=== PATIENT | male | born 1980 | race Hispanic/Latino ===

== ENCOUNTER 2021-06-30 05:41 | Emergency (ER) | payer BC ==
[2021-06-30 08:22] LABS: Protime INR 0.97
[2021-06-30 08:23] LABS: Absolute Lymphocytes (CBC) 2.3 K/uL (0.7-4.9); Basophils % 0.7 % (0-1.3); Hematocrit 41.3 % (39.6-49.0); Lymphocytes % 29.7 % (15.3-44.8); MPV 8.7 fL (7.6-11.3); RBC Red Blood Cell Count 4.44 M/uL (4.33-5.43)
[2021-06-30 08:52] LABS: ALT/SGPT 40 U/L (12-78); AST/SGOT 11 U/L (15-37); Albumin 3.7 g/dL (3.4-5.0); Alkaline Phosphatase 80 U/L (45-117); BUN Blood Urea Nitrogen 14 mg/dL (7-18); Bicarbonate 27 mmol/L (21-32); Bilirubin Direct 0.1 mg/dL (0-0.2); Bilirubin Total 0.4 mg/dL (0.2-1.0); Glucose Level 108 mg/dL (74-106); Lipase 85 U/L (73-393); Magnesium 2.2 mg/dL (1.8-2.4); NT PRO-BNP 7 pg/mL (<125); Potassium 3.8 mmol/L (3.5-5.1); Protein, Total 7.2 g/dL (6.4-8.2); Sodium Level 140 mmol/L (136-145); Troponin (Emerg Dept Use Only) < 0.02 ng/mL (0.0-0.045)
--- NOTE | 2021-06-30 09:23 | RAD REPORT ---
EXAM DESCRIPTION: RAD - Chest Single View - 06/30/2021 6:50 am CLINICAL HISTORY: CHEST PAIN Chest pain. COMPARISON: No comparisons FINDINGS: Portable technique limits examination quality. The lungs are grossly clear. The heart is normal in size. No displaced fractures. IMPRESSION: No acute intrathoracic process suspected.
[2021-06-30] MEDS ORDERED: FAMOTIDINE 20 MG/2 ML VIAL IV ONE (10:46)
--- NOTE | 2021-06-30 12:28 | EDPHYS ---
Physician Documentation [facility] Name: Petros Hogue Age: 41 yrs Sex: Male : 1980 Arrival Date: 06/30/2021 Time: 05:48 Bed 12 Private MD: RIC Physician Francis Naik HPI: 06/30 06:28 This 41 yrs old Male presents to ER via Ambulatory with complaints of Chest pm1 Pain > 30 y/o. 06:28 The patient or guardian reports chest pain that is located primarily in the xiphoid pm1 area. Onset: this morning, at 04:30. The pain radiates to mid back. Associated signs and symptoms: The patient has no apparent associated signs or symptoms, Pertinent negatives: abdominal pain, cough, diaphoresis, dizziness, headache, nausea, palpitations, shortness of breath, vomiting. The chest pain is described as burning. Duration: The patient or guardian reports a single episode, that is still ongoing, but improving. Modifying factors: The symptoms are alleviated by nothing. the symptoms are aggravated by nothing. Severity of pain: At its worst the pain was a 6 / 10 in the emergency department the pain has improved is a 5 / 10. The patient has experienced a previous episode, many years ago, Similar to issues with his gallbladder resulted in cholecystectomy. The patient has not recently seen a physician. Historical: - Allergies: 06:12 Aleve; lp1 - Home Meds: 06:12 None [Active]; lp1 - PMHx: 06:12 None; lp1 - PSHx: 06:12 Cholecystectomy; lp1 - Immunization history:: Adult Immunizations up to date. - Social history:: Smoking status: Patient denies any tobacco usage or history of. ROS: 06:28 Constitutional: Negative for fever, chills, and weight loss. pm1 06:28 Respiratory: Negative for shortness of breath, cough, wheezing, and pleuritic chest pain, Abdomen/GI: Negative for abdominal pain, nausea, vomiting, diarrhea, and constipation, Back: Negative for injury and pain, MS/Extremity: Negative for injury and deformity, Skin: Negative for injury, rash, and discoloration, Neuro: Negative for headache, weakness, numbness, tingling, and seizure. 06:28 Cardiovascular: Positive for chest pain, Negative for edema, palpitations. 06:28 All other systems are negative. Exam: 06:29 Constitutional: This is a well developed, well nourished patient who is awake, alert, pm1 and in no acute distress. Head/Face: Normocephalic, atraumatic. 06:29 Back: No spinal tenderness. No costovertebral tenderness. Full range of motion. Skin: Warm, dry with normal turgor. Normal color with no rashes, no lesions, and no evidence of cellulitis. MS/ Extremity: Pulses equal, no cyanosis. Neurovascular intact. Full, normal range of motion. 06:29 Eyes: Exam is negative for acute changes, Extraocular movements: no acute changes, Conjunctiva: normal, no injection. 06:29 ENT: Mouth: Lips: normal, Oral mucosa: normal, pink and intact, moist, Voice: no acute changes. 06:29 Neck: Exam negative for acute changes, ROM/movement: is normal, is supple. 06:29 Chest/axilla: Exam negative for acute changes, Inspection: normal, Palpation: is normal, no crepitus, no tenderness. 06:29 Cardiovascular: Exam negative for acute changes, Rate: normal, Rhythm: regular, Pulses: no pulse deficits are appreciated, Heart sounds: normal, normal S1and S2. 06:29 Respiratory: Exam negative for acute changes, respiratory distress, shortness of breath, Breath sounds: are clear throughout. 06:29 Abdomen/GI: Inspection: abdomen appears normal, Palpation: abdomen is soft and non-tender, in all quadrants. 06:29 Neuro: Exam negative for acute changes, Orientation: is normal, Mentation: is normal, Motor: is normal, moves all fours. Vital Signs: 06:13 BP 126 / 91; Pulse 73; Resp 18; Temp 97.4(TE); Pulse Ox 99% on R/A; Weight 99.79 kg lp1 (R); Height 5 ft. 6 in. (167.64 cm); Pain 5/10; 09:47 BP 125 / 84; Pulse 77; Resp 16; Temp 98.2(O); Pulse Ox 98% on R/A; mt 06:13 Body Mass Index 35.51 (99.79 kg, 167.64 cm) lp1 MDM: 06:17 Patient medically screened. pm1 06:25 Data reviewed: vital signs. Data interpreted: Pulse oximetry: on room air is 99 %. pm1 Interpretation: normal. 08:59 ED course: Reports 0 out of 10 chest pain. Discussed current lab findings EKG with pm1 patient. Discussed repeat troponin IV hours after initial lab set, and patient understands plan of care and evaluation with repeat troponin. 12:26 Counseling: I had a detailed discussion with the patient and/or guardian regarding: the pm1 historical points, exam findings, and any diagnostic results supporting the discharge/admit diagnosis, lab results, radiology results, the need for outpatient follow up, a family practitioner, a loop drier operator, to return to the emergency department if symptoms worsen or persist or if there are any questions or concerns that arise at home. 06/30 06:24 Order name: Basic Metabolic Panel; Complete Time: 08:54 pm1 06/30 06:24 Order name: CBC with Diff; Complete Time: 08:30 pm1 06/30 06:24 Order name: LFT's; Complete Time: 08:54 pm1 06/30 06:24 Order name: Magnesium; Complete Time: 08:54 pm1 06/30 06:24 Order name: NT PRO-BNP; Complete Time: 08:54 pm1 06/30 06:24 Order name: PT-INR; Complete Time: 08:30 pm1 06/30 06:16 Order name: EKG - Nurse/Tech; Complete Time: 06:29 lp1 06/30 06:16 Order name: EKG; Complete Time: 06:16 lp1 06/30 06:24 Order name: Troponin (emerg Dept Use Only); Complete Time: 08:54 pm1 06/30 06:24 Order name: XRAY Chest (1 view); Complete Time: 09:27 pm1 06/30 06:24 Order name: Cardiac monitoring; Complete Time: 07:11 pm1 06/30 06:24 Order name: Lipase; Complete Time: 08:54 pm1 06/30 09:22 Order name: Troponin (emerg Dept Use Only): Draw at 11:00; Complete Time: 12:19 pm1 06/30 06:24 Order name: IV Saline Lock; Complete Time: 07:03 pm06/30 06:24 Order name: Labs collected and sent; Complete Time: 07:11 pm06/30 06:24 Order name: O2 Per Protocol; Complete Time: 07:03 pm1 06/30 06:24 Order name: O2 Sat Monitoring; Complete Time: 07:03 pm1 Administered Medications: 10:27 Drug: Pepcid (famotidine) 20 mg Route: IVP; Site: right antecubital; ap3 11:10 Follow up: Response: No adverse reaction ss Disposition Summary: 06/30/21 12:27 Discharge Ordered Location: Home pm1 Problem: new pm1 Symptoms: have improved pm1 Condition: Stable pm1 Diagnosis - Chest pain, unspecified pm1 Followup: pm1 - With: Emergency Department - When: As needed - Reason: Worsening of condition Followup: pm1 - With: Private Physician - When: 2 - 3 days - Reason: Recheck today's complaints, Continuance of care, Re-evaluation by your physician Discharge Instructions: - Discharge Summary Sheet pm1 - Nonspecific Chest Pain, Adult pm1 Forms: - Medication Reconciliation Form pm1 - Thank You Letter pm1 - Antibiotic Education pm1 - Prescription Opioid Use pm1 - Work release form pm1 Prescriptions: - Pepcid 20 mg Oral Tablet - take 1 tablet by ORAL route every 12 hours for 10 days; 20 tablet; Refills: 0, pm1 Product Selection Permitted Addendum: 07/03/2021 07:05 Co-signature as Attending Physician, Francis Naik MD I agree with the assessment and c rjoas plan of care. Signatures: Dispatcher [employer] Francis Rosado MD MD cha Pena, Laura RN RN lp1 Silviano Bhardwaj, WATCH TRAIN INSPECTOR WATCH TRAIN INSPECTOR pm1 Amarilys Brown RN RN ap3 Cristin Rich RN ss Corrections: (The following items were deleted from the chart) 06/30 06:12 06:12 Allergies: No Known Allergies; lp1 lp1
--- NOTE | 2021-06-30 12:28 | ER ---
Nurse's Notes [facility] Name: Petros Hogue Age: 41 yrs Sex: Male : 1980 Arrival Date: 06/30/2021 Time: 05:48 Bed 12 Private MD: Diagnosis: Chest pain, unspecified Presentation: 06/30 06:09 Chief complaint: Patient states: Woke up this morning with lower chest pain, that lp1 radiating to mid back, burning sensation; Denies fever, nausea, vomiting. Coronavirus screen: Client denies travel out of the [place] in the last 14 days. At this time, the client does not indicate any symptoms associated with coronavirus-19. Ebola Screen: No symptoms or risks identified at this time. Risk Assessment: Do you want to hurt yourself or someone else? Patient reports no desire to harm self or others. Onset of symptoms was June 30, 2021 at 04:30. 06:09 Method Of Arrival: Ambulatory lp1 06:09 Acuity: MANDY 3 lp1 06:13 Initial Sepsis Screen: Does the patient meet any 2 criteria? No. Patient's initial lp1 sepsis screen is negative. Does the patient have a suspected source of infection? No. Patient's initial sepsis screen is negative. Historical: - Allergies: 06:12 Aleve; lp1 - Home Meds: 06:12 None [Active]; lp1 - PMHx: 06:12 None; lp1 - PSHx: 06:12 Cholecystectomy; lp1 - Immunization history:: Adult Immunizations up to date. - Social history:: Smoking status: Patient denies any tobacco usage or history of. Screenin:13 Abuse screen: Denies threats or abuse. Denies injuries from another. Nutritional lp1 screening: No deficits noted. Tuberculosis screening: No symptoms or risk factors identified. Fall Risk None identified. Assessment: 07:47 Reassessment: Recollect sent to lab at this time. Vital Signs: 06:13 BP 126 / 91; Pulse 73; Resp 18; Temp 97.4(TE); Pulse Ox 99% on R/A; Weight 99.79 kg lp1 (R); Height 5 ft. 6 in. (167.64 cm); Pain 5/10; 09:47 BP 125 / 84; Pulse 77; Resp 16; Temp 98.2(O); Pulse Ox 98% on R/A; mt 06:13 Body Mass Index 35.51 (99.79 kg, 167.64 cm) lp1 ED Course: 05:48 Patient arrived in ED. bp1 06:11 Triage completed. lp1 06:11 Arm band placed on right wrist. lp1 06:13 Patient has correct armband on for positive identification. lp1 06:16 Silviano Bhardwaj NP is PHCP. pm1 06:16 Francis Naik MD is Attending Physician. pm1 06:50 XRAY Chest (1 view) In Process Unspecified. EDMS 06:54 Lily Brooks, VONNIE is Primary Nurse. lh3 07:05 Inserted saline lock: 20 gauge in right antecubital area, using aseptic technique. ch4 12:34 IV discontinued, intact, bleeding controlled, No redness/swelling at site. Pressure tr6 dressing applied. Administered Medications: 10:27 Drug: Pepcid (famotidine) 20 mg Route: IVP; Site: right antecubital; ap3 11:10 Follow up: Response: No adverse reaction ss Outcome: 12:27 Discharge ordered by MD. pm1 12:34 Discharged to home ambulatory, pt refused wheelchair at this time tr6 12:34 Condition: pt reports that he feels better than when he first came in 12:34 Discharge instructions given to patient, Instructed on discharge instructions, follow up and referral plans. medication usage, safety practices, Demonstrated understanding of instructions, follow-up care, medications, Prescriptions given X 1. 12:35 Patient left the ED. tr6 Signatures: Dispatcher [facility] Cristin Rich RN RN Cora Doll RN RN lp1 Silviano Bhardwaj NP CHANNELING MACHINE OPERATOR pm1 Martita Merrill mi Amarilys Brown RN RN ap3 Joselyn Mcdonald [facility] Carolyne Motta RN RN tr6 Lily Brooks RN RN 3 Halley Magaña RN RN [facility] Corrections: (The following items were deleted from the chart) 06:12 06:12 Allergies: No Known Allergies; lp1 lp1 06:15 06:13 Pulse 73bpm; Resp 18bpm; Pulse Ox 99% RA; Temp 97.4F Temporal; 99.79 kg Reported; lp1 Height 5 ft. 6 in.; BMI: 35.5; Pain 5/10; lp1
[2021-06-30 12:43] VITALS: BP 125/84; TEMP 98.2; O2SAT 98
== END 2021-06-30 12:35 | disposition home or self-care (01) ==
LOC: ER 05:41
DX: R07.9 Chest pain, unspecified (principal); Z88.6 Allergy status to analgesic agent
CPT/HCPCS: 36415; 71045; 80048; 80076; 83690; 83735; 83880; 84484; 85025; 85610; 93005; 96374; 99284

== ENCOUNTER 2025-08-15 16:05 | Observation (INO) | payer BC ==
[2025-08-15] MEDS ORDERED: MAGNES/ALUMIN/SIMET 30ML UCUP ONE (16:25)
[2025-08-15] MEDS ORDERED: FAMOTIDINE 20 MG/2 ML VIAL IV ONE (16:25)
[2025-08-15] MEDS ORDERED: LIDOCAINE VISCOUS 2% 10ML ORAL SOLN ONE (16:26)
[2025-08-15] MEDS ORDERED: NA CHLORIDE 0.9% 1,000 ML ONE (16:26)
[2025-08-15 16:42] LABS: Hematocrit 43.7 % (39.6-49.0); Hemoglobin 15.2 g/dL (13.6-17.9); MCV 92.3 fL (80-100); RBC Red Blood Cell Count 4.73 M/uL (4.33-5.43); White Blood Count 11.30 thou/uL (4.3-10.9)
[2025-08-15 16:43] LABS: Absolute Lymphocytes (CBC) 1.5 K/uL (0.7-4.9); MCH 32.1 pg (27.0-35.0); MCHC 34.8 g/dL (32.0-36.0); MPV 8.5 fL (7.6-11.3); Nucleated RBC Absolute Count 0.0 (0-0); Nucleated Red Blood Cells % 0.0 % (0-0)
[2025-08-15 16:49] LABS: ALT/SGPT 43 U/L (16-61); Albumin 3.6 g/dL (3.4-5.0); Albumin/Globulin Ratio 0.8 (1.1-1.8); Alkaline Phosphatase 102 U/L (45-117); Anion Gap 6.8 mEq/L (5.0-15.0); BUN Blood Urea Nitrogen 9 mg/dL (7-18); Globulin 4.3 g/dL (2.3-3.5); Glucose Level 113 mg/dL (74-106); Lipase 21 U/L (13-75); Potassium 3.8 mEq/L (3.5-5.1)
[2025-08-15 16:55] LABS: AST/SGOT < 10 U/L (15-37)
[2025-08-15 17:10] LABS: Sqamous Epithelial <5 /HPF (None Seen); Urine Crystals Unidentified Few /HPF (None Seen); Urine Culture Reflex Order NOT NEEDED; Urine Microscopic Reflex YN ORDER UMIC
[2025-08-15] MEDS ORDERED: PIPERACIL/TAZO 3.375 GM VIAL IV ONE (17:52)
[2025-08-15] MEDS ORDERED: NA CHLORIDE 0.9% 100 ML ONE (17:52)
--- NOTE | 2025-08-15 17:55 | ER ---
Nurse's Notes [facility] Name: Petros Hogue Age: 45 yrs Sex: Male : 1980 Arrival Date: 08/15/2025 Time: 16:05 Bed 16 Private MD: Diagnosis: Acute uncomplicated appendicitis, abdominal pain Presentation: 08/15 16:17 Chief complaint: Patient states: I ate late last night and took some cough meds. Today jb4 I am having epigastric pain and lower abdominal pain. Coronavirus screen: At this time, the client does not indicate any symptoms associated with coronavirus-19. Ebola Screen: No symptoms or risks identified at this time. Initial Sepsis Screen: Does the patient meet any 2 criteria? HR > 90 bpm. Yes Does the patient have a suspected source of infection? No. Patient's initial sepsis screen is negative. Risk Assessment: Do you want to hurt yourself or someone else? Patient reports no desire to harm self or others. Onset of symptoms was August 15, 2025. Transition of care: patient was not received from another setting of care. 16:17 Method Of Arrival: Ambulatory [facility] 16:17 Acuity: MANDY 3 jb4 Historical: - Allergies: 16:19 Aleve; jb4 - PMHx: 16:19 None; jb4 - PSHx: 16:19 Cholecystectomy; jb4 - Immunization history:: Adult Immunizations up to date. - Infectious Disease History:: Denies. - Social history:: Smoking status: Patient denies any tobacco usage or history of. Patient uses alcohol, occasionally. Screenin:20 [facility] ED Fall Risk Assessment (Adult) History of falling in the last 3 months, me1 including since admission No falls in past 3 months (0 pts) Confusion or Disorientation No (0 pts) Intoxicated or Sedated No (0 pts) Impaired Gait No (0 pts) Mobility Assist Device Used No (0 pt) Altered Elimination No (0 pt) Score/Fall Risk Level 0 - 2 = Low Risk Maintained a safe environment, Provided non-skid footwear, Hourly rounding (assess needs \T\ fall precautionary measures) done. Abuse screen: Denies threats or abuse. Nutritional screening: No deficits noted. Tuberculosis screening: No symptoms or risk factors identified. Assessment: 16:20 General: Appears uncomfortable, well groomed, well developed, Behavior is calm, me1 cooperative, appropriate for age, Reports I ate late last night and took some cough meds. Today I am having epigastric pain and lower abdominal pain. Pain: Complains of pain in epigastric area, right lower quadrant and left lower quadrant Pain does not radiate. Pain currently is 8 out of 10 on a pain scale. Quality of pain is described as sharp, Pain began 1 day ago. Is continuous. Neuro: Level of Consciousness is awake, alert, obeys commands, Oriented to person, place, time, situation, Appropriate for age. Cardiovascular: Patient's skin is warm and dry. Respiratory: Airway is patent Respiratory effort is even, unlabored, Respiratory pattern is regular, symmetrical. GI: Abdomen is round non-distended, Bowel sounds present X 4 quads. Abd is soft X 4 quads. GI: Reports lower abdominal pain, upper abdominal pain, since last night. : No signs and/or symptoms were reported regarding the genitourinary system. EENT: No signs and/or symptoms were reported regarding the EENT system. Derm: Skin is intact, is healthy with good turgor, Skin is normal. Musculoskeletal: Circulation, motion, and sensation intact. Range of motion: intact in all extremities. Vital Signs: 16:17 Pulse 92; Resp 16; Temp 98.1(TE); Pulse Ox 97% on R/A; Weight 109.77 kg (R); Height 5 jb4 ft. 6 in. ; Pain 8/10; 17:00 BP 122 / 68; Pulse 97; Resp 15; Pulse Ox 97% ; me1 18:00 BP 125 / 72; Pulse 94; Resp 16; Temp 98.1; Pulse Ox 98% ; me1 16:17 Body Mass Index 39.06 (109.77 kg, 167.64 cm) jb4 16:17 Pain Scale: Adult jb4 ED Course: 16:08 Patient arrived in ED. al6 16:08 Yes[facility] Quispe [facility]-C [facility] kb 16:08 Kiko Em MD is Attending Physician. kb 16:13 Elo Jason, VONNIE is Primary Nurse. me1 16:19 Triage completed. jb4 16:19 Arm band placed on right wrist. jb4 16:20 Patient has correct armband on for positive identification. Bed in low position. Call me1 light in reach. Side rails up X2. Provided Education on: POC. Verbalized understanding.. Client placed on continuous cardiac and pulse oximetry monitoring. NIBP monitoring applied. Pulse ox on. NIBP on. 16:20 No provider procedures requiring assistance completed. me1 16:22 Initial lab(s) drawn, by me, sent to lab. Inserted saline lock: 20 gauge in left me1 antecubital area, using aseptic technique. 16:22 CBC with Diff Sent. me1 16:22 CMP Sent. me1 16:22 Lipase Sent. me1 16:22 Troponin High Sensitivity Sent. me1 16:41 Urine collected: clean catch specimen, whitley colored, EKG done, by ED staff, reviewed me1 by Kiko Em MD. 17:14 CT Abd/Pelvis - IV Contrast Only In Process Unspecified. EDMS 17:53 Chu Ramachandran MD is Hospitalizing Provider. sp3 18:29 Patient admitted, IV remains in place. me1 Administered Medications: 16:31 Drug: Famotidine IVP 20 mg IVP once; dilute with 10 mL 0.9% NaCl; give over 2 minutes me1 Route: IVP; Site: left antecubital; 16:48 Follow up: Response: No adverse reaction me1 16:31 Drug: NS 0.9% IV 1000 ml IV at 1 bolus Per protocol; to be given as a bolus over 60 me1 minutes Route: IV; Rate: 1 bolus; Site: left antecubital; 18:28 Follow up: Response: No adverse reaction; IV Status: Completed infusion me1 16:31 Drug: GI Cocktail without - (Maalox PO 30 ml, Lidocaine Mucous Membrane 2 % 15 me1 ml) PO once Route: PO; 16:48 Follow up: Response: No adverse reaction; Pain is decreased me1 18:02 Drug: Piperacillin-Tazobactam IVPB 3.375 grams IVPB once over 60 mins; (mix in NS 100 me1 mL) Route: IVPB; Infused Over: 60 mins; Site: left antecubital; 18:28 Follow up: Response: No adverse reaction; IV Status: Completed infusion me1 Medication: 16:20 VIS not applicable for this client. me1 Outcome: 17:55 Decision to Hospitalize by Provider. sp3 18:26 Patient left the ED. ll1 18:29 Admitted to OR accompanied by nurse, via stretcher, with chart, Report called to trixie Taylor RN 18:29 Condition: stable 18:29 Instructed on the need for admit, Signatures: Dispatcher [employer] EDYesica Ibarra, CURTAIN CUTTER-Leon CURTAIN CUTTER-Abdoulaye Hill RN RN jb4 Chapito Adames RN RN ll1 Kiko Em MD MD sp3 Elo Jason RN RN me1 Windy Haskins al6 Corrections: (The following items were deleted from the chart) 17:16 16:17 Chief complaint: Patient states: I ate late last night and took some cough meds. me1 Today I am having epigastric pain and lower abdominal pain jb4
--- NOTE | 2025-08-15 17:55 | EDPHYS ---
Physician Documentation [facility] Name: Petros Hogue Age: 45 yrs Sex: Male : 1980 Arrival Date: 08/15/2025 Time: 16:05 Bed 16 Private MD: ED Physician Kiko Em HPI: 08/15 16:18 This 45 yrs old Male presents to ER via Unassigned with complaints of sp3 Abdominal Pain, Cough. 16:18 45-year-old male with no significant past medical history and status sp3 postcholecystectomy presents with abdominal pain epigastric extending inferiorly. Patient states that he has had a viral upper respiratory infection for which she has been taking Mucinex. After he took this and some Tylenol he states that the pain in his abdomen started and progressively got worse over the last 48 hours. He denies any vomiting, diarrhea, fever, chest pain, shortness of breath, back pain, syncope, bleeding, or any other signs or symptoms on ROS at this time.. Historical: - Allergies: 16:19 Aleve; jb4 - PMHx: 16:19 None; jb4 - PSHx: 16:19 Cholecystectomy; jb4 - Immunization history:: Adult Immunizations up to date. - Infectious Disease History:: Denies. - Social history:: Smoking status: Patient denies any tobacco usage or history of. Patient uses alcohol, occasionally. ROS: 16:19 Constitutional: Negative for fever, chills, and weight loss, Eyes: Negative for injury, sp3 pain, redness, and discharge, ENT: Negative for injury, pain, and discharge, Neck: Negative for injury, pain, and swelling, Cardiovascular: Negative for chest pain, palpitations, and edema, Respiratory: Negative for shortness of breath, cough, wheezing, and pleuritic chest pain, Back: Negative for injury and pain, MS/Extremity: Negative for injury and deformity, Skin: Negative for injury, rash, and discoloration, Neuro: Negative for headache, weakness, numbness, tingling, and seizure, Psych: Negative for depression, anxiety, suicide ideation, homicidal ideation, and hallucinations, Allergy/Immunology: Negative for hives, rash, and allergies, Endocrine: Negative for neck swelling, polydipsia, polyuria, polyphagia, and marked weight changes, Hematologic/Lymphatic: Negative for swollen nodes, abnormal bleeding, and unusual bruising, 16:19 All other systems are negative, Exam: 16:20 Constitutional: This is a well developed, well nourished patient who is awake, alert, sp3 and in no acute distress. Head/Face: Normocephalic, atraumatic. Eyes: Pupils equal round and reactive to light, extra-ocular motions intact. Lids and lashes normal. Conjunctiva and sclera are non-icteric and not injected. Cornea within normal limits. Periorbital areas with no swelling, redness, or edema. ENT: Nares patent. No nasal discharge, no septal abnormalities noted. External auditory canals are clear. Oropharynx with no redness, swelling, or masses, exudates, or evidence of obstruction, uvula midline. Mucous membranes moist. Neck: Trachea midline, no thyromegaly or masses palpated, and no cervical lymphadenopathy. Supple, full range of motion without nuchal rigidity, or vertebral point tenderness. No Meningismus. Chest/axilla: Normal chest wall appearance and motion. Nontender with no deformity. No lesions are appreciated. Cardiovascular: Regular rate and rhythm with a normal S1 and S2. No gallops, murmurs, or rubs. Normal PMI, no JVD. No pulse deficits. Respiratory: Lungs have equal breath sounds bilaterally, clear to auscultation and percussion. No rales, rhonchi or wheezes noted. No increased work of breathing, no retractions or nasal flaring. Back: No spinal tenderness. No costovertebral tenderness. Full range of motion. Skin: Warm, dry with normal turgor. Normal color with no rashes, no lesions, and no evidence of cellulitis. MS/ Extremity: Pulses equal, no cyanosis. Neurovascular intact. Full, normal range of motion. Neuro: Awake and alert, GCS 15, oriented to person, place, time, and situation. Cranial nerves II-XII grossly intact. Motor strength 5/5 in all extremities. Sensory grossly intact. Cerebellar exam normal. Normal gait. Psych: Awake, alert, with orientation to person, place and time. Behavior, mood, and affect are within normal limits. 16:20 Abdomen/GI: Diffuse abdominal pain to palpation without peritoneal signs, rebound or guarding. Nonsurgical abdomen. Vital signs are normal., 16:54 ECG was reviewed by the Attending Physician. EKG demonstrates normal sinus rhythm at 89 sp3 bpm with normal intervals, normal QRS, normal axis, normal ST/T-segment's without evidence of acute ischemia. Vital Signs: 16:17 Pulse 92; Resp 16; Temp 98.1(TE); Pulse Ox 97% on R/A; Weight 109.77 kg (R); Height 5 jb4 ft. 6 in. ; Pain 8/10; 17:00 BP 122 / 68; Pulse 97; Resp 15; Pulse Ox 97% ; me1 18:00 BP 125 / 72; Pulse 94; Resp 16; Temp 98.1; Pulse Ox 98% ; me1 16:17 Body Mass Index 39.06 (109.77 kg, 167.64 cm) jb4 16:17 Pain Scale: Adult jb4 MDM: 16:08 Medical Screening Exam initiated kb 16:20 Data reviewed: vital signs, nurses notes, lab test result(s), radiologic studies. ED sp3 course: 45-year-old male with abdominal pain after taking medications for URI. Differential diagnosis includes gastritis, esophageal reflux, esophageal spasm, pancreatitis, other biliary pathology, colitis, hernia, musculoskeletal, and to a much lesser degree ACS or other pathology. Workup will include CT scan of the abdomen pelvis with IV contrast, EKG, general labs, UA and general supportive care. Pepcid and GI cocktail for symptomatic control. Further medications if indicated.. 17:52 ED course: CT demonstrates appendicitis retrocecal with fat stranding. I discussed the sp3 case with Dr. Ramachandran who is here for another case and will be taking patient to the OR at this time.. 08/15 16:17 Order name: CBC with Diff; Complete Time: 17:11 sp3 08/15 16:17 Order name: CMP; Complete Time: 17:11 sp3 08/15 16:17 Order name: Lipase; Complete Time: 17:11 sp3 08/15 16:17 Order name: UA Rfx Delmer Cult if indicated; Complete Time: 17:11 sp3 08/15 16:21 Order name: Troponin High Sensitivity; Complete Time: 17:11 sp3 08/15 16:17 Order name: CT Abd/Pelvis - IV Contrast Only; Complete Time: 18:06 sp3 08/15 16:21 Order name: EKG; Complete Time: 16:21 sp3 08/15 16:17 Order name: IV Saline Lock; Complete Time: 16:22 sp3 08/15 16:17 Order name: Labs collected and sent; Complete Time: 16:22 sp3 08/15 16:21 Order name: EKG - Nurse/Tech; Complete Time: 16:40 sp3 Administered Medications: 16:31 Drug: Famotidine IVP 20 mg IVP once; dilute with 10 mL 0.9% NaCl; give over 2 minutes me1 Route: IVP; Site: left antecubital; 16:48 Follow up: Response: No adverse reaction me1 16:31 Drug: NS 0.9% IV 1000 ml IV at 1 bolus Per protocol; to be given as a bolus over 60 me1 minutes Route: IV; Rate: 1 bolus; Site: left antecubital; 18:28 Follow up: Response: No adverse reaction; IV Status: Completed infusion me1 16:31 Drug: GI Cocktail without - (Maalox PO 30 ml, Lidocaine Mucous Membrane 2 % 15 me1 ml) PO once Route: PO; 16:48 Follow up: Response: No adverse reaction; Pain is decreased me1 18:02 Drug: Piperacillin-Tazobactam IVPB 3.375 grams IVPB once over 60 mins; (mix in NS 100 me1 mL) Route: IVPB; Infused Over: 60 mins; Site: left antecubital; 18:28 Follow up: Response: No adverse reaction; IV Status: Completed infusion me1 Disposition Summary: 08/15/25 17:55 Hospitalization Ordered Notes: Hospitalization Status: Observation sp3 Provider: Chu Ramachandran sp3 Location: Operating Room sp3 Condition: Stable sp3 Problem: new sp3 Symptoms: have worsened sp3 Bed/Room Type: Standard sp3 Room Assignment: sp3 Diagnosis - Acute uncomplicated appendicitis, abdominal pain sp3 Forms: - Medication Reconciliation Form sp3 - SBAR form sp3 - Leadership Thank You Letter sp3 Signatures: Dispatcher [employer] Yesica Rabago FNP-C FNP-Adboulaye Hill, RN RN jb4 Kiko Em MD MD sp3 Elo Jason RN RN me1 Corrections: (The following items were deleted from the chart) 16:21 16:20 ED course: 45-year-old male with abdominal pain after taking medications for URI. sp3 Differential diagnosis includes gastritis, esophageal reflux, esophageal spasm, pancreatitis, other biliary pathology, colitis, hernia, musculoskeletal, and to a much lesser degree ACS or other pathology.. sp3
--- NOTE | 2025-08-15 18:03 | RAD REPORT ---
EXAMINATION: CT Abdomen Pelvis W Contrast CLINICAL INDICATION: Male, 45 years old. ABD PAIN TECHNIQUE: CT abdomen and pelvis was performed, after the administration of IV contrast, as per [facility] protocol. Axial, sagittal and coronal reconstructions were obtained. One or more of the following dose reduction techniques were used: Automated exposure control, adjustment of the mA and k V according to patient size, and iterative reconstruction. Unless otherwise specified, incidental findings do not require dedicated imaging follow-up. COMPARISON: No prior exam. FINDINGS: LOWER CHEST: The visualized lung bases are clear. LIVER: Normal in size and contour. No focal lesion. BILIARY SYSTEM: Status post cholecystectomy. SPLEEN: Normal size. No focal lesion. PANCREAS: No mass, ductal dilation, or maulik-pancreatic fluid. ADRENALS: Normal; no mass. KIDNEYS: Normal size and contour. No hydronephrosis. URINARY BLADDER: Unremarkable. GASTROINTESTINAL TRACT: No evidence of free air, significant intra-abdominal free fluid, bowel obstru ction or abscess. APPENDIX: Distended up to 1.2 cm in caliber along the mid appendix, with mucosal hyperenhancement and adjacent fat stranding. No appendicolith. Trace nonloculated fluid along the right paracolic gutter. No adjacent fluid collections. LYMPH NODES: No lymphadenopathy. MUSCULOSKELETAL: No acute or suspicious osseous abnormality. ADDITIONAL FINDINGS: None. IMPRESSION: Sequelae of acute appendicitis without evidence of complications. THIS REPORT CONTAINS FINDINGS THAT MAY BE CRITICAL TO PATIENT CARE. The findings were verbally commun icated via telephone to Kiko Em on 08/15/2025 5:49 PM.
[2025-08-15] MEDS: SUCCINYLCHOLINE 20 MG/ML (10 ML) IV ONE (18:17)
[2025-08-15] MEDS: SUGAMMADEX SODIUM 200 MG/2 ML VIAL IV ONE (18:17)
[2025-08-15] MEDS ORDERED: LIDOCAINE 2% MPF 5 ML VIAL ONE (18:18)
[2025-08-15] MEDS ORDERED: ROCURONIUM 50 MG/5 ML VIAL IV ONE (18:18)
[2025-08-15] MEDS ORDERED: FENTANYL CITR 100 MCG/2 ML ONE (18:18)
[2025-08-15] MEDS ORDERED: ONDANSETRON 4 MG/2 ML VIAL ONE (18:18)
[2025-08-15] MEDS ORDERED: MIDAZOLAM HCL 2 MG/2 ML INJ ONE (18:19)
[2025-08-15] MEDS ORDERED: HYDROCODONE/APAP 7.5/325 MG TAB PO PRN (18:29)
[2025-08-15] MEDS ORDERED: MORPHINE 2 MG/ML SYR IV PRN (18:29)
[2025-08-15] MEDS ORDERED: PROMETHAZINE INJ 25 MG/ML AMP IV PRN (18:29)
--- NOTE | 2025-08-15 19:20 | P.BOP ---
Preoperative diagnosis: acute appendicitis Postoperative diagnosis: same Primary procedure: Laparosocopic appendectomy Estimated blood loss: <10cc Specimen: yang Findings: as above Anesthesia: General Complications: None Transferred to: Recovery Room Condition: Good
[2025-08-15] MEDS: LEVALBUTEROL 1.25 MG/3 ML NEB ONE (19:45)
--- NOTE | 2025-08-15 19:49 | OP ---
Date of Procedure: 08/15/2025 Surgeon: Chu Ramachandran MD Preoperative Diagnosis: Acute appendicitis. Postoperative Diagnosis: Acute appendicitis. Procedure: Laparoscopic appendectomy. Estimated Blood Loss: Less than 10 cc. Specimen: Appendix. Finding: As above. Anesthesia: General plus local. Indications: This is a case of a 45-year-old patient comes to us with acute appendicitis. The benef its, alternatives, and risks of laparoscopic possible open appendectomy were fully explained, which i nclude, but not limited to infection, bleeding, damage to adjacent structures, anesthesia complicatio n, abscess, NH, and even . He also understands this may not relieve his symptoms. He might nee d more than one surgical intervention. He understood, signed a consent. The OR was immediately call ed. Description Of Procedure: The patient was brought to the operating room, placed in supine position. Anesthesia was induced without complication. Abdominal area was prepped and draped in sterile fashi on. Local anesthesia was applied followed by sharp incision of the skin after time-out in the infrau mbilical region. Incision was carried down to fascia, which was opened under direct vision. Periton eum was encountered, opened under direct vision. Vicryl #1 placed inside the fascia. Miguel Ángel trocar was carefully introduced. Pneumoperitoneum was obtained. I placed 2 more trocars, 5 mm each one of them under direct visualization in the suprapubic and left lower quadrant. Once we have in that area , we noticed the patient to have an inflamed appendix. The base of the appendix seems to be spared, so we went through the patient's appendix with the help of LigaSure. Thick mesoappendix. No bleedin g. When we get to the base of the appendix, we transected that with an Endo-GREYSON 45 mm nonvascular. Appendix was removed from abdominal cavity using an EndoCatch through the umbilical incision. The ar ea was inspected. No bowel leak. No bleeding. At that moment, I proceeded to remove the trocars un octavio direct vision. Deflated pneumoperitoneum. Closed the fascia with #1 Vicryl. Irrigated subcutan eous tissue, closed that with Monocryl and then the skin with all. Sponge count and instrument c ounts were correct. The patient tolerated the procedure well. The patient was awake and sent to Recovery in stable condition . HM/MODL Voice ID: [id number] Report ID: [id number]
--- NOTE | 2025-08-15 20:18 | HP ---
Date of Admission: 08/15/2025 Reason For Service: Acute appendicitis. History Of Present Illness: This is a case of a 45-year-old patient here with abdominal pain since l ast night. Today, got worse, just showed up in ER, seen by the primary doctor and found to have acut e appendicitis and a surgical evaluation was ordered. He has been taking Mucinex for just a cough an d he took some Tylenol also to see if the pain is getting better, but did not improve. He denies any dysuria, hematuria, hematochezia, melena. He denies any recent traveling out of the country. Denie s any family member sick at home. Review of Systems: Ten points otherwise unremarkable. Allergies: ALEVE. Medical History: None. Surgical History: Cholecystectomy. Social History: He does not smoke. He does not drink alcohol. Family History: Noncontributory. No previous colonoscopies, the patient advised. Physical Examination: Vital Signs: Reviewed. General: The patient is awake, alert. HEENT: Pupils are equal and reactive. Anicteric. Neck: Supple. Chest: Clear. Heart: S1-S2. Abdomen: Soft and depressible. No guarding or rebound. No peritoneal signs. There is tenderness o f the periumbilical region in right lower quadrant. Rovsing sign positive. Genitalia: Deferred. Extremities: Good capillary refill. Neuro: Cranial nerves 2 through 12 grossly within normal limits. Laboratory Data: WBC count is 11.3, hemoglobin of 15.2, platelets of 273, potassium 3.8, glucose 113 . CAT scan of the abdomen and pelvis interpreted by Dr. Guerrero as distended up to about 1.2 cm calib er mid appendix with mucosal hyper-enhancement and adjacent fat stranding. Trace of non-loculated fl uid along the right pericolic gutter. Assessment: This is a 45-year-old patient with acute appendicitis. The benefits, alternatives, and risks of laparoscopic possible open appendectomy were fully explained, which include, but not limited to infection, bleeding, damage to adjacent structures, anesthesia complication, abscess, ID, even de ath. The patient understands this may not relieve symptoms, he might need more than one surgical int ervention. The OR was called emergently. BALDEMAR/LYLE Voice ID: [id number]
--- NOTE | 2025-08-15 20:20 | RAD REPORT ---
EXAMINATION: ONE VIEW CHEST XR CLINICAL INDICATION: Male, 45 years old.,S/P APPY TECHNIQUE: Frontal chest projection is submitted. Examination is limited by patient positioning and t echnique. COMPARISON: 06/30/2021 FINDINGS: The lungs show suboptimal inspiratory effort somewhat limits evaluation. Hazy right midlung opacifica tion, could represent mild airspace disease, although superimposition of soft tissues could exacerbate the appearance. No pneumothorax or sizable effusion. The heart is normal in size. Mediasti nal contours are unremarkable. IMPRESSION: Questionable hazy right midlung opacification as above.
[2025-08-15] MEDS: CIPROFLOXACIN 400mg IV 400 MG/200 ML BAG IV SCH (21:26)
[2025-08-15] MEDS: NA CHLORIDE 0.9% 1,000 ML IV SCH (21:26)
[2025-08-15 22:04] VITALS: BMI 39.0
--- NOTE | 2025-08-15 22:24 | P.CNS ---
Date of Consult: 08/15/25 Reason for Consult: Management of cough, pneumonia questionable, tachycardia. Chief Complaint: Status post appendectomy, cough. History of Present Illness: Patient is a pleasant 45-year-old male who initially reported to the ER complaining of abdominal pain, patient was found to have appendicitis, taken to the OR by Dr. Ramachandran today, status post appendectomy. Patient states from he has been having nonproductive cough, subjective fever, states today in the ER his temperature was 100 F. Hospitalist consulted postop for management of cough, questionable pneumonia, and tachycardia. On admission assessment patient was awake, states he felt much better, denies of any chest pain or shortness of breath, still endorses cough nonproductive. Patient lungs bilateral clear with no adventitious breath sounds. Course in ER: (1) CT abdomen and pelvis with contrast. Impression: Sequela of acute appendicitis without evidence of complications. (2) chest x-ray 1 view. Impression: Questionable hazy right middle lobe opacification. Allergies naproxen [From Aleve] Allergy (Verified 08/15/25 18:59) FACIAL SWELLING/ANGIOEDEMA Home Medications: NK [No Home Meds] 08/15/25 - Past Medical/Surgical History Diabetic: No -: Cholecystectomy - Social History Place of Residence: Home Review of Systems 10-point ROS is otherwise unremarkable Respiratory: Cough (Nonproductive.) Physical Examination Temp Pulse Resp BP Pulse Ox 100.0 F 109 H 18 121/64 95 08/15/25 21:00 08/15/25 21:00 08/15/25 21:00 08/15/25 21:00 08/15/25 21:00 General: Alert, In no apparent distress, Oriented x3, Cooperative HEENT: Atraumatic, Normocephalic, PERRLA, Mucous membr. moist/pink, Sclerae nonicteric Neck: Supple, 2+ carotid pulse no bruit, No LAD, Without JVD or thyroid abnormality Respiratory: Clear to auscultation bilaterally, Normal air movement Cardiovascular: No edema, Normal pulses, Regular rate/rhythm, Normal S1 S2, No gallops, No rubs, No murmurs Capillary refill: <2 Seconds Gastrointestinal: Normal bowel sounds, Soft and benign, Non-distended, W/out hepatomegaly, No ascites, No masses, No rebound, No guarding, Tenderness (Tenderness post appendectomy day 1.) Musculoskeletal: No clubbing, No swelling, No contractures, No erythema, No tenderness, No warmth Integumentary: No rashes, No breakdown, No significant lesion, No tenderness/swelling, No erythema, No warmth, No cyanosis Neurological: Normal gait, Normal speech, Normal strength at 5/5 x4 extr, Normal tone, Sensation intact, Cranial nerves 3-12 intact, Normal reflexes 2+, Normal affect Lymphatics: No axilla or inguinal lymphadenopathy Laboratory Data (last 24 hrs) 08/15/25 08/15/25 16:22 16:22 WBC 11.30 H Hgb 15.2 Hct 43.7 Plt Count 273 Sodium 136 Potassium 3.8 BUN 9 Creatinine 0.91 Glucose 113 H Total Bilirubin 0.8 AST < 10 L ALT 43 Alkaline Phosphatase 102 Lipase 21 Conclusions/Impression: Patient is a pleasant 45-year-old male who is postop day 1 status post appendectomy, hospitalist consulted for medical management. (1) status post appendectomy. -Continue on Cipro for 100 mg IV every 12 hours. -Continue hydrocodone 7.5/325 1 as needed every 4 hours. -Continue IV NS 100 mL/hr. -Morphine 2 mg as needed every 4 hours. (2)Pneumonia questionable, and cough. Patient has been febrile at home. Patient chest x-ray is concerning. -Broaden coverage with doxycycline 100 mg IV every 12. -Order telemetry. Postop patient tachycardia according to report received.. -Robitussin 20 mg p.o. 4 times daily as needed. (3)Explained entire treatment plan to the patient and family present at the bedside, solicited questions answered and voiced understanding. Critical Care: No Time Spent Managing Pts care (In Minutes): 55
[2025-08-15] MEDS: guaiFENesin 100 MG/5 ML UCUP PO PRN (22:33)
--- NOTE | 2025-08-16 07:01 | P.PN ---
Date of Service: 08/16/25 Subjective: dealing with intermittent cough since ~ Reports increased, thicker phlegm last ~24 hrs "choking" episode occurred after coughing - thinks on some saliva. resolved without issue after coughing a few times Breathing okay on room air Physical Exam: GEN: Alert, oriented, NAD CV: Regular rate and rhythm, no edema Pulm: Nonlabored respirations on room air, clear bilaterally. Mild cough ABD: soft, dressing in place, nondistended Neuro: Normal speech, normal affect Problem List: Acute appendicitis s/p lap appy (08/15) Cough Tachycardia CT showed sequelae of acute appendicitis. s/p lap appy on 08/[address] Ramachandran Consulted for medical management post-operatively Patient reports increased cough associated with low grade temps and tachycardia CXR with questionable hazy right midlung opacification concerning for pneumonia does not appear to have pneumonia clinically at this time continue abx Continue abx Pain control monitor on telemetry, encourage incentive spirometry PRN Robitussin for cough Leukocytosis resolved. No evidence of infection. Suspect cough/sore throat related to sedation/intubation from surgery VTE: Code: Full Dispo: Anticipate home; per surgery Clinically improved Time Spent Managing Pts Care (In Minutes): 55
[2025-08-16 07:57] LABS: Absolute Lymphocytes (CBC) 2.0 K/uL (0.7-4.9); Hematocrit 39.1 % (39.6-49.0); Hemoglobin 13.5 g/dL (13.6-17.9); MCH 31.8 pg (27.0-35.0); MCHC 34.5 g/dL (32.0-36.0); MCV 92.2 fL (80-100); MPV 8.3 fL (7.6-11.3); Nucleated RBC Absolute Count 0.0 (0-0); Nucleated Red Blood Cells % 0.1 % (0-0); RBC Red Blood Cell Count 4.24 M/uL (4.33-5.43); White Blood Count 9.50 thou/uL (4.3-10.9)
[2025-08-16 08:16] VITALS: BP 134/72; TEMP 98.6
[2025-08-16] MEDS: DOXYCYCLINE 100 MG in NA CHLORIDE 0.9% 100 ML IVPB SCH (09:28)
--- NOTE | 2025-08-16 10:07 | P.DS ---
Admission Date: 08/15/25 Discharge Date: 08/16/25 Disposition: ROUTINE DISCHARGE Discharge Condition: GOOD Reason for Admission: Status post appendectomy, cough. Vital Signs/Physical Exam: Temp Pulse Resp BP Pulse Ox 98.6 F 87 17 134/72 91 08/16/25 08:00 08/16/25 08:00 08/16/25 08:00 08/16/25 08:00 08/16/25 08:00 General: Alert, In no apparent distress, Oriented x3, Cooperative HEENT: PERRLA, EOMI Neck: Supple Respiratory: Normal air movement Gastrointestinal: Soft and benign Musculoskeletal: No erythema, No tenderness, No warmth Integumentary: No rashes, No breakdown, No erythema, No warmth, No cyanosis Neurological: Normal speech Laboratory Data at Discharge: WBC 9.50 thou/uL (4.3-10.9) 08/16/25 07:47 Hgb 13.5 g/dL (13.6-17.9) L D 08/16/25 07:47 Hct 39.1 % (39.6-49.0) L 08/16/25 07:47 Plt Count 233 thou/uL (152-406) 08/16/25 07:47 Sodium 136 mEq/L (136-145) 08/15/25 16:22 Potassium 3.8 mEq/L (3.5-5.1) 08/15/25 16:22 BUN 9 mg/dL (7-18) 08/15/25 16:22 Creatinine 0.91 mg/dL (0.70-1.30) 08/15/25 16:22 Glucose 113 mg/dL (74-106) H 08/15/25 16:22 Total Bilirubin 0.8 mg/dL (0.2-1.0) 08/15/25 16:22 AST < 10 U/L (15-37) L 08/15/25 16:22 ALT 43 U/L (16-61) 08/15/25 16:22 Alkaline Phosphatase 102 U/L (45-117) 08/15/25 16:22 Lipase 21 U/L (13-75) 08/15/25 16:22 Home Medications: NK [No Home Meds] 08/15/25 Diet: Regular Activity: No lifting more than 10 lbs Followup: Elliott Bustos MD [Primary Care Provider] - Chu Ramachandran MD [ACTIVE - CAN ADMIT] - 08/20/25
[2025-08-16 14:26] VITALS: O2SAT 93
== END 2025-08-16 12:00 | disposition home or self-care (01) ==
LOC: ER 16:05 → 4TH 18:29
PROVIDERS: ADMIT Surgery; ATTEND Surgery
PROC: 0DTJ4ZZ Resection of Appendix, Percutaneous Endoscopic Approach (ICD-10-PCS; principal; 2025-08-15 18:30)
DX: K35.80 Unspecified acute appendicitis (principal); R10.9 Unspecified abdominal pain; R05.9 Cough, unspecified; R00.0 Tachycardia, unspecified
CPT/HCPCS: 96365; 96361; 93005; 85025 ×2; 81001; 36415 ×2; 88304; 84484; 83690; 80053; 74177; 71045; 94010 ×2; 96375; 99285; 44970; Q9967; J2704; J7614; J2543; J2003; J2250; J3010; J2405; J0744; G0378 ×4; J7030 ×2; J0330